=== PATIENT | female | born 1945 | race Caucasian/White ===

== ENCOUNTER 2018-12-01 23:08 | Inpatient (IN) | payer MEDICARE, MEDICAID ==
[~2018-12-01] VITALS: Ht 165.1 cm; Wt 126.1 kg
[2018-12-01] MEDS ORDERED: METHYLPREDNISOLONE SOD SUCC 125 MG/2 ML VIAL IV STA (23:19)
[2018-12-01] MEDS ORDERED: IPRATROPIUM BROMIDE (0.02%) 0.5MG/2.5ML NEB HHN STA (23:19)
[2018-12-01] MEDS ORDERED: ALBUTEROL (0.083%) 2.5MG/3ML NEB HHN STA (23:19)
[2018-12-01] MEDS ORDERED: MAGNESIUM 2 G PREMIX 50 ML IV STA (23:19)
[2018-12-02] VITALS (7 sets, daily range): BP systolic 101–129; BP diastolic 46–70
[2018-12-02 00:04] LABS: BASOPHILS % 0.4 % (0.0-2.0); EOSINOPHILS % 3.2 % (0.0-5.0); HEMATOCRIT. 38.2 % (36.0-48.0); HEMOGLOBIN. 12.5 g/dL (12.0-16.0); LYMPHOCYTES % 8.3 % (20.0-50.0); MEAN CORPUSCULAR HEMOGLOBIN 29.3 pg (28.0-32.0); MEAN CORPUSCULAR VOLUME 89.3 fL (81.0-99.0); MONOCYTES % 8.8 % (2.0-8.0); NEUTROPHILS % 79.3 % (40.0-76.0); PLATELET 287 x1000/uL (130-400); RED BLOOD CELL COUNT 4.27 mill/uL (4.2-5.4); RED CELL DISTRIBUTION WIDTH 13.3 % (11.6-14.6)
[2018-12-02 00:07] LABS: CHLORIDE 85 mEq/L (98-107)
[2018-12-02 00:09] LABS: INR 1.1; PARTIAL THROMBOPLASTIN TIME 30.9 sec (23.4-31.0); PROTHROMBIN TIME 10.8 sec (9.1-11.1)
[2018-12-02] MEDS ORDERED: LEVOFLOXACIN 500MG PREMIX 100 ML IV ONE (00:30)
[2018-12-02] MEDS ORDERED: FUROSEMIDE 40MG/4ML VIAL IVP ONE (00:30)
[2018-12-02 01:04] LABS: BG BASE EXCESS 5.9 mmol/L (-2.0-2.0); BG BILEVEL POS AIRWAY PRESSURE 15/5; BG CARBOXYHEMOGLOBIN 1.2 % (0.5-1.5); BG DEOXYHEMOGLOBIN 1.8 % (0.0-5.0); BG FRACTION INSPIRED OXYGEN 40; BG HCO3 ACT 31.7 mmol/L (22.0-26.0); BG METHEMOGLOBIN 0.1 % (0.0-1.5); BG OXYGEN SATURATION 98.2 % (92.0-98.5); BG OXYHEMOGLOBIN 96.9 % (94.0-97.0); BG PCO2 50.7 mmHg (35.0-45.0); BG PH 7.414 (7.350-7.450); BG PO2 110.7 mmHg (75.0-100.0); BG SAMPLE SITE RIGHT RADIAL; BG TOTAL HEMOGLOBIN 13.3 g/dL (12.0-18.0); BG VENT MODE MASK - BIPAP; BG VENT RATE 16 set
[2018-12-02 03:39] LABS: CLARITY URINE CLEAR (CLEAR); COLOR URINE YELLOW (YELLOW); KETONES URINE NEGATIVE (NEGATIVE); LEUKOCYTE ESTERASE URINE NEGATIVE (NEGATIVE); NITRITE URINE NEGATIVE (NEGATIVE); OCCULT BLOOD URINE NEGATIVE (NEGATIVE); PROTEIN URINE NEGATIVE (NEGATIVE); SPECIFIC GRAVITY URINE 1.012 (1.005-1.030); UROBILINOGEN URINE 0.2 E.U./dL (0.2-1.0)
[2018-12-02] MEDS ORDERED: ACETAMINOPHEN 325MG TABLET PO PRN (06:15)
[2018-12-02] MEDS ORDERED: HYDROCODONE/ACETAMINOPHEN 5/325MG TABLET PO PRN (06:15)
[2018-12-02] MEDS ORDERED: METHYLPREDNISOLONE SOD SUCC 125 MG/2 ML VIAL IV SCH (06:15)
[2018-12-02] MEDS ORDERED: MAGNESIUM/ALUMINUM HYDROXIDE/SIMETHICONE 30ML UDC PO PRN (06:15)
[2018-12-02] MEDS ORDERED: MORPHINE SULFATE 4 MG/ML CPJ (NOT FOR IM USE) IV NR (06:15)
[2018-12-02] MEDS ORDERED: CLONIDINE 0.1MG TABLET PO PRN (06:15)
[2018-12-02] MEDS ORDERED: ENOXAPARIN 40MG/0.4ML SYR SUBCUT SCH (06:15)
[2018-12-02] MEDS ORDERED: GUAIFENESIN 200MG/10ML SUGAR FREE UDC PO PRN (06:15)
[2018-12-02] MEDS ORDERED: IPRATROPIUM/ALBUTEROL 0.5-3(2.5)MG/3ML NEB INH SCH (06:15)
[2018-12-02] MEDS ORDERED: ONDANSETRON HCL 4MG/2ML INJ IV PRN (06:15)
[2018-12-02] MEDS ORDERED: IPRATROPIUM/ALBUTEROL 0.5-3(2.5)MG/3ML NEB INH PRN (06:15)
[2018-12-02] MEDS ORDERED: LORAZEPAM 0.5MG TABLET PO PRN (06:15)
[2018-12-02] MEDS ORDERED: DEXTROSE 50% WATER 50ML SYRINGE IV PRN ×2 (06:15)
[2018-12-02] MEDS ORDERED: NYST1POW23 MC (06:27)
[2018-12-02] MEDS ORDERED: PREG100C MT ×2 (06:27→17:48)
[2018-12-02] MEDS ORDERED: FLUT9.9S BOTHNSTRLS (06:27)
[2018-12-02] MEDS ORDERED: DULO60CA44 MT (06:27)
[2018-12-02] MEDS ORDERED: METH-611 GT (06:27)
[2018-12-02] MEDS ORDERED: [UNRECOGNIZED DRUG - CODE] MT (06:27)
[2018-12-02] MEDS ORDERED: DONE5TAB26 PO (06:27)
[2018-12-02] MEDS ORDERED: APIX5TAB MT (06:27)
[2018-12-02] MEDS ORDERED: NAPR-681 PO (06:27)
[2018-12-02] MEDS ORDERED: DILT-2 MT (06:27)
[2018-12-02] MEDS ORDERED: METO-385 PO (06:27)
[2018-12-02] MEDS ORDERED: INSULIN LISPRO 100 UNITS/ML SUBCUT SCH (08:20)
[2018-12-02] MEDS: HYDROCODONE/ACETAMINOPHEN 10/325MG TABLET PO PRN ×2 (08:23→14:58)
[2018-12-02] MEDS: BLOOD SUGAR DIAGNOSTIC STRIP TEST SCH ×4 (09:39→21:57)
[2018-12-02] MEDS ORDERED: IPRATROPIUM/ALBUTEROL 0.5-3(2.5)MG/3ML NEB HHN PRN (13:30)
[2018-12-02] MEDS ORDERED: NAPR-1176 MT (14:18)
[2018-12-02] MEDS ORDERED: MEMA5TAB15 MT (14:18)
[2018-12-02] MEDS ORDERED: ALBU18HF2 IH (14:18)
[2018-12-02] MEDS ORDERED: ASPI81TA47 MT (14:18)
[2018-12-02] MEDS ORDERED: FLUT1AER IH (14:18)
[2018-12-02] MEDS ORDERED: CHOL200077 MT (14:18)
[2018-12-02] MEDS ORDERED: OMEP20TA15 MT (14:18)
[2018-12-02] MEDS ORDERED: DOXY100C2 MT (14:18)
[2018-12-02] MEDS ORDERED: ZOLP5TAB2 MT (14:18)
[2018-12-02] MEDS: DILTIAZEM HCL 120MG CAPSULE CD 24HR PO SCH (14:58)
[2018-12-02] MEDS: DONEPEZIL HCL 5MG TABLET PO SCH (14:58)
[2018-12-02] MEDS: DULOXETINE HCL 60MG DR CAPSULE PO SCH (14:59)
[2018-12-02] MEDS: INSULIN LISPRO 100 UNITS/ML SUBCUT SCH ×3 (14:59→21:57)
[2018-12-02] MEDS: APIXABAN 5 MG TABLET PO SCH (17:08)
[2018-12-02] MEDS: DOCUSATE SODIUM 100MG CAPSULE PO SCH (17:08)
[2018-12-02] MEDS ORDERED: METHADONE HCL 10MG TABLET PO NR (19:00)
[2018-12-02] MEDS: BUDESONIDE 0.5MG/2ML NEB HHN SCH (20:27)
[2018-12-02] MEDS: IPRATROPIUM/ALBUTEROL 0.5-3(2.5)MG/3ML NEB HHN SCH (20:27)
[2018-12-02] MEDS: PREGABALIN 50 MG CAPSULE PO SCH (21:56)
[2018-12-03] VITALS (12 sets, daily range): BP systolic 92–149; BP diastolic 45–99
[2018-12-03] MEDS ORDERED: LEVOFLOXACIN 500MG PREMIX 100 ML IV SCH (02:00)
[2018-12-03] MEDS: IPRATROPIUM/ALBUTEROL 0.5-3(2.5)MG/3ML NEB HHN SCH ×4 (02:18→20:08)
[2018-12-03] MEDS: HYDROCODONE/ACETAMINOPHEN 10/325MG TABLET PO PRN ×5 (03:14→23:25)
[2018-12-03] MEDS: BLOOD SUGAR DIAGNOSTIC STRIP TEST SCH ×4 (07:35→21:03)
[2018-12-03 08:12] LABS: BASOPHILS % 0.1 % (0.0-2.0); EOSINOPHILS % 0.4 % (0.0-5.0); HEMOGLOBIN. 11.5 g/dL (12.0-16.0); LYMPHOCYTES % 7.7 % (20.0-50.0); MEAN CORPUSCULAR HEMOGLOBIN 29.3 pg (28.0-32.0); MEAN CORPUSCULAR VOLUME 89.1 fL (81.0-99.0); MEAN PLATELET VOLUME 8.8 fl (7.4-10.4); MONOCYTES % 6.7 % (2.0-8.0); NEUTROPHILS % 85.1 % (40.0-76.0); PLATELET 270 x1000/uL (130-400); RED BLOOD CELL COUNT 3.93 mill/uL (4.2-5.4); RED CELL DISTRIBUTION WIDTH 12.9 % (11.6-14.6)
[2018-12-03 08:21] LABS: CHLORIDE 88 mEq/L (98-107)
[2018-12-03 08:28] LABS: PHOSPHORUS 2.8 mg/dL (2.5-4.9)
[2018-12-03 08:32] LABS: T4 FREE 1.47 ng/dL (0.76-1.46)
[2018-12-03] MEDS: DILTIAZEM HCL 120MG CAPSULE CD 24HR PO SCH (08:58)
[2018-12-03] MEDS: PREGABALIN 50 MG CAPSULE PO SCH ×2 (08:58→21:48)
[2018-12-03] MEDS: APIXABAN 5 MG TABLET PO SCH ×2 (08:58→17:31)
[2018-12-03] MEDS: DOCUSATE SODIUM 100MG CAPSULE PO SCH ×2 (08:59→17:31)
[2018-12-03] MEDS: INSULIN LISPRO 100 UNITS/ML SUBCUT SCH ×4 (08:59→21:47)
[2018-12-03] MEDS: DONEPEZIL HCL 5MG TABLET PO SCH (08:59)
[2018-12-03] MEDS: DULOXETINE HCL 60MG DR CAPSULE PO SCH (08:59)
[2018-12-03] MEDS ORDERED: FUROSEMIDE 40MG/4ML VIAL IV SCH ×2 (09:00)
[2018-12-03] MEDS: BUDESONIDE 0.5MG/2ML NEB HHN SCH ×2 (09:03→20:08)
[2018-12-03] MEDS ORDERED: FUROSEMIDE 20MG/2ML VIAL IVP NR (13:00)
[2018-12-03] MEDS: PREDNISONE 20MG TABLET PO SCH (14:54)
[2018-12-04] VITALS (8 sets, daily range): BP systolic 112–139; BP diastolic 54–68
[2018-12-04] MEDS ORDERED: LEVOFLOXACIN 500MG PREMIX 100 ML IV SCH (01:00)
[2018-12-04] MEDS: IPRATROPIUM/ALBUTEROL 0.5-3(2.5)MG/3ML NEB HHN SCH ×3 (02:04→14:40)
[2018-12-04] MEDS: BLOOD SUGAR DIAGNOSTIC STRIP TEST SCH ×2 (06:50→11:18)
[2018-12-04 06:53] LABS: BASOPHILS % 0.1 % (0.0-2.0); EOSINOPHILS % 0.1 % (0.0-5.0); HEMOGLOBIN. 12.1 g/dL (12.0-16.0); LYMPHOCYTES % 7.6 % (20.0-50.0); MEAN CORPUSCULAR HEMOGLOBIN 29.8 pg (28.0-32.0); MEAN CORPUSCULAR VOLUME 88.9 fL (81.0-99.0); MEAN PLATELET VOLUME 8.6 fl (7.4-10.4); MONOCYTES % 5.9 % (2.0-8.0); NEUTROPHILS % 86.3 % (40.0-76.0); PLATELET 265 x1000/uL (130-400); RED BLOOD CELL COUNT 4.05 mill/uL (4.2-5.4); RED CELL DISTRIBUTION WIDTH 13.4 % (11.6-14.6)
[2018-12-04 07:22] LABS: CHLORIDE 88 mEq/L (98-107)
[2018-12-04] MEDS: PREGABALIN 50 MG CAPSULE PO SCH (08:05)
[2018-12-04] MEDS: APIXABAN 5 MG TABLET PO SCH (08:05)
[2018-12-04] MEDS: DILTIAZEM HCL 120MG CAPSULE CD 24HR PO SCH (08:05)
[2018-12-04] MEDS: DULOXETINE HCL 60MG DR CAPSULE PO SCH (08:05)
[2018-12-04] MEDS: PREDNISONE 20MG TABLET PO SCH (08:06)
[2018-12-04] MEDS: DONEPEZIL HCL 5MG TABLET PO SCH (08:06)
[2018-12-04] MEDS: DOCUSATE SODIUM 100MG CAPSULE PO SCH (08:06)
[2018-12-04] MEDS: INSULIN LISPRO 100 UNITS/ML SUBCUT SCH ×2 (08:08→11:37)
[2018-12-04] MEDS: BUDESONIDE 0.5MG/2ML NEB HHN SCH (08:16)
[2018-12-04] MEDS ORDERED: FUROSEMIDE 40MG/4ML VIAL IV SCH (09:00)
[2018-12-04] MEDS ORDERED: MAGNESIUM 2 G PREMIX 50 ML IV NR (11:00)
== END 2018-12-04 14:45 | disposition home health service (06) | DRG 291 ==
LOC: ER 23:08 → 3WST 12-02 00:31 → ENRESERV 12-02 11:06
PROVIDERS: ADMIT Family Medicine Adult Medicine; ATTEND Family Medicine Adult Medicine
PROC: 5A09357 Assistance with Respiratory Ventilation, Less than 24 Consecutive Hours, Continuous Positive Airway Pressure (ICD-10-PCS; 2018-12-01)
PROC: 5A09357 Assistance with Respiratory Ventilation, Less than 24 Consecutive Hours, Continuous Positive Airway Pressure (ICD-10-PCS; principal; 2018-12-02)
DX: I11.0 Hypertensive heart disease with heart failure (principal); J96.01 Acute respiratory failure with hypoxia; J18.9 Pneumonia, unspecified organism; E87.1 Hypo-osmolality and hyponatremia; J44.0 Chronic obstructive pulmonary disease with (acute) lower respiratory infection; E87.2 Acidosis; B37.0 Candidal stomatitis; Z68.42 Body mass index [BMI] 45.0-49.9, adult; I50.43 Acute on chronic combined systolic (congestive) and diastolic (congestive) heart failure; E11.42 Type 2 diabetes mellitus with diabetic polyneuropathy; I48.91 Unspecified atrial fibrillation; E66.09 Other obesity due to excess calories; F03.90 Unspecified dementia, unspecified severity, without behavioral disturbance, psychotic disturbance, mood disturbance, and anxiety; G89.29 Other chronic pain; Z85.01 Personal history of malignant neoplasm of esophagus; Z87.01 Personal history of pneumonia (recurrent); Z92.21 Personal history of antineoplastic chemotherapy; Z92.3 Personal history of irradiation; Z98.84 Bariatric surgery status; Z82.49 Family history of ischemic heart disease and other diseases of the circulatory system; Z83.3 Family history of diabetes mellitus
CPT/HCPCS: 36415; 36600; 71045; 80048; 82375; 82805; 82962; 83036; 83605; 83735; 83880; 84100; 84145; 84439; 84443; 84484; 93005; 93306; 94640; 94660; 96365; 96366; 96368; 96375; 97162; 97166; 99291; J1815; J1940; J1956; J2270; J2930; J3475; J7050; J7512; J7611; J7620; J7626